=== PATIENT | female | born 1960 | race Caucasian/White ===

== ENCOUNTER → 2018-07-31 | Outpatient (CLI) | payer OTHER ==
--- NOTE | ~2018-07-31 | EXE ---
[facility] [place] [address] STRESS ECHOCARDIOGRAM Name: BAOEDMOND Mayank Room #: REG [facility]#: [id number] Admission: 07/31/18 Attend Phys: Maykel Rojas, Discharge: Date of : 64 Date of Service: 07/31/18 1403 Report #: [id number] THIS REPORT FOR: //name// APPROVED REPORT Study performed: 07/31/2018 13:16:29 Exam: Stress Echocardiogram Indication: Pericardial pain, palpitations Patient Location: Out-Patient Stress Nurse: Daniella Sanchez RN Status: routine Ht: 5 ft 5 in HR: 78 bpm BP: 130/78 mmHg Rhythm: NSR Medical History Medical History: None Allergies: Codine Procedure The patient underwent an Exercise Stress Test using the Fabian Protocol. Blood pressure, heart rate, and EKG were monitored. An Echocardiogram was performed by air conditioning service technician in four stages in quad fashion. At peak stress, four selected images were obtained and placed side by side with resting images for comparison. Stress Test Details Stress Test: Exercise stress testing was performed using a Fabian protocol. HR Resting HR: 78 bpm Max Heart Rate (APMHR): 165 bpm Max HR Achieved: 190 bpm Target HR (85% APMHR): 140 bpm % of APMHR: 115 Recovery HR: 91 bpm HR response to stress: Normal HR response to stress BP Resting BP: 130/78 mmHg Max BP: 160/78 mmHg Recovery BP: 134/78 mmHg BP response to stress: Normal blood pressure response to stress. ECG [facility] [address] [place] [address] STRESS ECHOCARDIOGRAM Name: EDMOND GORE [id number] Admission: 07/31/18 Attend Phys: Maykel Rojas, Discharge: Date of : 64 Date of Service: 07/31/18 1403 Report #: [id number] Resting ECG: Sinus Rhythm Stress ECG: Sinus Rhythm ST Change: Upsloping ST depression Maximum ST Deviation: 0.5 mm Arrhythmia: None Recovery ECG: Sinus Rhythm Recovery ST Change: Normal Recovery ST Deviation: 0 mm Recovery Arrhythmia: None Clinical Reason for Termination: Completed protocol Stress Symptoms: Leg Fatigue Exercise duration: 10 min sec Highest Stage Achieved: Stage 4: 4.2 mph at 16% grade. Exercise capacity: 13.4 METs Angina Score: None Stress ECG Conclusion Clinical: Non-ischemic ECG: Non-ischemic Aden Treadmill Score is 7.5 which is Low risk. Pre-Stress Echo The resting Echocardiogram showed normal left ventricular contractility with an estimated Ejection Fraction of about 50-55%. Mild MR, mild to moderate TR Post-Stress Echo The stress Echocardiogram showed normal left ventricular contractility with an estimated Ejection Fraction of about 60-65%. Conclusion Clinical Response: Non-ischemic Exercise Capacity: Average Stress ECG Response: Non-ischemic Stress Echo Images: Non-ischemic The left ventricle is normal in size and wall thickness in both the rest and stress images. Normal stress echocardiogram with maximal exercise stress. Other Information Study Quality: Good <Conclusion> The left ventricle is normal in size and wall thickness in both the [facility] [address] [place] [address] STRESS ECHOCARDIOGRAM Name: EDMOND GORE Room #: REG [facility]#: [id number] Admission: 07/31/18 Attend Phys: Maykel Rojas, Discharge: Date of : 64 Date of Service: 07/31/181402 Report #: [id number] rest and stress images. Normal stress echocardiogram with maximal exercise stress. <ELECTRONICALLY SIGNED> By: Maykel Rojas MD, FACC 07/31/181402 02 02 Maykel Rojas MD, FACC /INF
== END ==
LOC: CV 07-10 09:43
DX: R07.2 Precordial pain (principal); R00.2 Palpitations; Z87.898 Personal history of other specified conditions